=== PATIENT | female | born 1940 | race African-American/Black ===

== ENCOUNTER 2017-07-22 11:03 | Emergency (ER) | payer OTHER ==
--- NOTE | 2017-07-22 12:41 | ER ---
Nurse's Notes [facility] Name: Dulce Bosch Age: 76 yrs Sex: Female : 1940 Arrival Date: 07/22/2017 Time: 11:04 Bed Waiting Private MD: Feliciano Mendoza H Diagnosis: Presentation: 07/22 11:15 Presenting complaint: Patient states: Lower back pain that shoots down left leg. aj Started 2 weeks ago. Transition of care: patient was not received from another setting of care. Onset of symptoms was July 08, 2017. Initial Sepsis Screen: Does the patient meet any 2 criteria? No. Patient's initial sepsis screen is negative. Does the patient have a suspected source of infection? No. Patient's initial sepsis screen is negative. Care prior to arrival: None. 11:15 Method Of Arrival: Ambulatory aj 11:15 Acuity: LINETTE 4 aj Triage Assessment: 11:17 General: Appears in no apparent distress. comfortable, Behavior is calm, cooperative, aj appropriate for age. Pain: Complains of pain in coccyx, left lower back, right lower back, left gluteus rin and left gluteal fold Pain currently is 9 out of 10 on a pain scale. Neuro: Level of Consciousness is awake, alert, obeys commands, Oriented to person, place, time, situation. Respiratory: Airway is patent Respiratory effort is even, unlabored, Respiratory pattern is regular, symmetrical. : No signs and/or symptoms were reported regarding the genitourinary system. Derm: Skin is intact, is healthy with good turgor, Skin is pink, warm \T\ dry. normal. Musculoskeletal: Circulation, motion, and sensation intact. Reports pain in coccyx, left lower back, right lower back, left gluteus rin and left gluteal fold. Historical: - Allergies: 11:17 No Known Allergies; aj - Home Meds: 11:17 Lisinopril Oral [Active]; Zetia Oral [Active]; Sensipar oral oral [Active]; aj - PMHx: 11:17 Hypertension; Hyperlipidemia; aj - PSHx: 11:17 bilateral mastectomy; aj - Immunization history:: Adult Immunizations up to date. - Social history:: Smoking status: Patient/guardian denies using tobacco. Vital Signs: 11:17 BP 137 / 76; Pulse 80; Resp 17; Temp 97.9; Pulse Ox 98% on R/A; Weight 84.37 kg; Height aj 5 ft. 7 in. (170.18 cm); Pain 9/10; 11:17 Body Mass Index 29.13 (84.37 kg, 170.18 cm) aj ED Course: 11:04 Patient arrived in ED. as 11:04 Feliciano Mendoza DO is Private Physician. as 11:16 Triage completed. aj 11:17 Arm band placed on left wrist. Patient placed in waiting room, Patient notified of wait aj time. 12:41 Remy Lo MD is Attending Physician. aj 12:41 Patient's name was called from ER lobby. No response. aj Administered Medications: No medications were administered Outcome: 12:41 Eloped from waiting room, before seeing physician aj 12:41 Patient left the ED. aj Signatures: Cecilia Thompson, RN RN Danae Rosales as
== END 2017-07-22 12:41 | disposition left against medical advice (07) ==
LOC: ER 11:03
DX: Z02.9 Encounter for administrative examinations, unspecified (principal)
CPT/HCPCS: 99281

== ENCOUNTER 2017-07-22 14:41 | Emergency (ER) | payer OTHER ==
[2017-07-22 15:38] LABS: Urine Blood TRACE (NEG); Urine Glucose NEGATIVE (NEG); Urine Protein NEGATIVE (NEG); Urine Specific Gravity 1.015 (1.005-1.030); Urine pH 6.5 (5.0-7.0)
[2017-07-22 16:19] LABS: Urine Bacteria <20 /HPF (<20); Urine RBC <5 /HPF (NONE SEEN)
[2017-07-22 16:20] LABS: Urine Culture Reflex Order REFLEXED; Urine Mucus NS /HPF (NONE SEEN)
--- NOTE | 2017-07-22 16:29 | ER ---
Nurse's Notes [facility] Name: Dulce Bosch Age: 76 yrs Sex: Female : 1940 Arrival Date: 07/22/2017 Time: 14:43 Bed 28 Private MD: Diagnosis: Lumbago with sciatica, left side Presentation: 07/22 14:46 Presenting complaint: Patient states: "I had to leave a little while ago before I could aj get back because my needed something from home." Patient reports low back pain that shoots down left leg for 2 weeks. Transition of care: patient was not received from another setting of care. Onset of symptoms was July 08, 2017. Initial Sepsis Screen: Does the patient meet any 2 criteria? No. Patient's initial sepsis screen is negative. Does the patient have a suspected source of infection? No. Patient's initial sepsis screen is negative. Care prior to arrival: None. 14:46 Method Of Arrival: Ambulatory 14:46 Acuity: LINETTE 4 aj Triage Assessment: 14:48 General: Appears in no apparent distress. comfortable, Behavior is calm, cooperative. aj Pain: Complains of pain in coccyx, left lower back, left gluteus rin and left gluteal fold. Neuro: Level of Consciousness is awake, alert, obeys commands, Oriented to person, place, time, situation, Appropriate for age. Respiratory: Airway is patent Respiratory effort is even, unlabored, Respiratory pattern is regular, symmetrical. Derm: Skin is intact, is healthy with good turgor, Skin is pink, warm \\T\\ dry. normal. Musculoskeletal: Range of motion: intact in all extremities. Historical: - Allergies: 14:48 No Known Allergies; aj - Home Meds: 14:48 lisinopril Oral [Active]; Sensipar Oral [Active]; Zetia Oral [Active]; aj - PMHx: 14:48 Hyperlipidemia; Hypertension; aj - PSHx: 14:48 bilateral mastectomy; aj - Immunization history:: Adult Immunizations up to date. - Social history:: Smoking status: Patient/guardian denies using tobacco. Screenin:35 Abuse screen: Denies threats or abuse. Denies injuries from another. Nutritional kr2 screening: No deficits noted. Tuberculosis screening: No symptoms or risk factors identified. Fall Risk None identified. Assessment: 15:39 General: Appears in no apparent distress. comfortable, well groomed, well developed, kr2 well nourished, Behavior is calm, cooperative. Pain: Complains of pain in left gluteus rin and left lower back Pain radiates to left leg Pain currently is 9 out of 10 on a pain scale. Quality of pain is described as burning, aching, shooting, Is continuous, Alleviated by rest, Aggravated by weight bearing. Neuro: Level of Consciousness is awake, alert, obeys commands, Oriented to person, place, time, situation, Manager Sterile are equal bilaterally Moves all extremities. Gait is steady, Speech is normal, Facial symmetry appears normal, Pupils are PERRLA, Intact. Cardiovascular: Capillary refill < 3 seconds in bilateral fingers Patient's skin is warm and dry. Respiratory: Airway is patent Respiratory effort is even, unlabored, Respiratory pattern is regular, symmetrical. GI: Abdomen is flat, non-distended. : Urine is clear. EENT: Nares are clear bilaterally Oral mucosa is moist. Derm: Skin is intact, is healthy with good turgor, Skin is pink, warm \\T\\ dry. Musculoskeletal: Circulation, motion, and sensation intact. 16:42 Reassessment: Patient appears in no apparent distress at this time. Patient and/or kr2 family updated on plan of care and expected duration. Pain level reassessed. Patient is alert/active/playful, equal unlabored respirations, skin warm/dry/pink. Vital Signs: 14:48 BP 137 / 76; Pulse 80; Resp 17; Temp 97.9; Pulse Ox 98% on R/A; Weight 84.37 kg (M); aj Height 5 ft. 7 in. (170.18 cm); Pain 9/10; 16:42 BP 135 / 74; Pulse 80; Resp 17; Pulse Ox 99% on R/A; kr2 14:48 Body Mass Index 29.13 (84.37 kg, 170.18 cm) ED Course: 14:43 Patient arrived in ED. as 14:47 Triage completed. aj 14:48 Arm band placed on left wrist. Patient placed in an exam room. aj 15:03 Brad Julio PA is PHCP. cp 15:03 Remy Lo MD is Attending Physician. cp 15:07 Rosalina Mack RN is Primary Nurse. kr2 15:30 Urine collected: clean catch specimen, clear. kr2 15:35 Patient has correct armband on for positive identification. Bed in low position. Call kr2 light in reach. Side rails up X2. Pulse ox on. NIBP on. Door closed. Warm blanket given. Head of bed elevated. 16:43 No provider procedures requiring assistance completed. Patient did not have IV access kr2 during this emergency room visit. Administered Medications: No medications were administered Outcome: 16:28 Discharge ordered by . rosa 16:43 Discharged to home ambulatory, with family. kr2 16:43 Condition: good 16:43 Discharge instructions given to patient, Instructed on discharge instructions, follow up and referral plans. medication usage, Demonstrated understanding of instructions, follow-up care, medications, Prescriptions given X 3. 16:43 Patient left the ED. kr2 Signatures: Cecilia Thompson, RN RN Danae Rosales Corey, PA PA cp Reaves, Karey RN RN kr2
--- NOTE | 2017-07-22 16:29 | EDPHYS ---
Physician Documentation [facility] Name: Dulce Bosch Age: 76 yrs Sex: Female : 1940 Arrival Date: 07/22/2017 Time: 14:43 Bed 28 Private MD: ED Physician Remy Lo HPI: 07/22 15:15 This 76 yrs old Black Female presents to ER via Ambulatory with complaints of Back Pain.cp 15:15 The patient presents with pain that is acute, with no known mechanism of injury. The cp symptoms are located in the low back. The pain radiates to the left leg. 15:15 Onset: The symptoms/episode began/occurred 2 week(s) ago. cp 15:15 Associated signs and symptoms: Pertinent negatives: abdominal pain, chest pain, cp constipation, dysuria, fever, incontinence, numbness, urinary retention, weakness. The problem was sustained from unknown cause. Historical: - Allergies: 14:48 No Known Allergies; aj - Home Meds: 14:48 lisinopril Oral [Active]; Sensipar Oral [Active]; Zetia Oral [Active]; aj - PMHx: 14:48 Hyperlipidemia; Hypertension; aj - PSHx: 14:48 bilateral mastectomy; aj - Immunization history:: Adult Immunizations up to date. - Social history:: Smoking status: Patient/guardian denies using tobacco. ROS: 15:20 Constitutional: Negative for body aches, chills, fever, poor PO intake. cp 15:20 Eyes: Negative for injury, pain, redness, and discharge. cp 15:20 ENT: Negative for drainage from ear(s), ear pain, sore throat, difficulty swallowing, difficulty handling secretions. 15:20 Cardiovascular: Negative for chest pain, edema, palpitations. 15:20 Respiratory: Negative for cough, shortness of breath, wheezing. 15:20 Abdomen/GI: Negative for abdominal pain, nausea, vomiting, and diarrhea, constipation, black/tarry stool, rectal bleeding, bowel incontinence. 15:20 Back: Positive for pain at rest, pain with movement, of the low back area. 15:20 : Negative for urinary symptoms, flank pain, difficulty urinating, bladder incontinence. 15:20 MS/extremity: Positive for of the left leg, radiating pain, Negative for injury or acute deformity, decreased range of motion, paresthesias, swelling, tenderness. 15:20 Skin: Negative for cellulitis, rash. 15:20 Neuro: Negative for altered mental status, headache, numbness, weakness. 15:20 All other systems are negative. Exam: 15:25 Constitutional: The patient appears in no acute distress, alert, awake, non-toxic, well cp developed, well nourished. 15:25 Head/Face: Normocephalic, atraumatic. cp 15:25 Eyes: Periorbital structures: appear normal, Conjunctiva: normal, no exudate, no injection, Sclera: no appreciated abnormality, Lids and lashes: appear normal, bilaterally. 15:25 ENT: External ear(s): are unremarkable, Nose: is normal, Mouth: is normal, Posterior pharynx: is normal, airway is patent. 15:25 Neck: ROM/movement: is normal, is supple, without pain, no range of motions limitations, no nuchal rigidity. 15:25 Chest/axilla: Inspection: normal. 15:25 Cardiovascular: Rate: normal, Rhythm: regular. 15:25 Respiratory: the patient does not display signs of respiratory distress, Respirations: normal, no use of accessory muscles, no retractions, no splinting, no tachypnea, labored breathing, is not present, Breath sounds: are clear throughout, no decreased breath sounds, no stridor, no wheezing. 15:25 Abdomen/GI: Exam negative for discomfort, distension, guarding, Inspection: abdomen appears normal. 15:25 Back: pain, that is mild, of the low back area, ROM is normal, CVA tenderness, is absent, muscle spasm, is not present, Straight leg raises: of both lower extremities does not illicit pain. 15:25 Skin: cellulitis, is not appreciated, no rash present. 15:25 Neuro: Motor: moves all fours, strength is 5/5 in the right leg and left leg, Sensation: no obvious gross deficits, Gait: is steady, Deep tendon reflexes are 2+ (normal) in the right patellar, right Achilles, left patellar and left Achilles. Vital Signs: 14:48 BP 137 / 76; Pulse 80; Resp 17; Temp 97.9; Pulse Ox 98% on R/A; Weight 84.37 kg (M); aj Height 5 ft. 7 in. (170.18 cm); Pain 9/10; 16:42 BP 135 / 74; Pulse 80; Resp 17; Pulse Ox 99% on R/A; kr2 14:48 Body Mass Index 29.13 (84.37 kg, 170.18 cm) aj MDM: 15:03 Patient medically screened. cp 16:00 Differential diagnosis: Pyelonephritis ruptured disc, Ureterolithiasis sciatica, cp lumbago. 16:25 Data reviewed: vital signs, nurses notes, lab test result(s), and as a result, I will cp discharge patient. 16:25 Counseling: I had a detailed discussion with the patient and/or guardian regarding: the cp historical points, exam findings, and any diagnostic results supporting the discharge/admit diagnosis, lab results, the need for outpatient follow up, a family practitioner, to return to the emergency department if symptoms worsen or persist or if there are any questions or concerns that arise at home. 07/22 15:03 Order name: Urine Microscopic Only 07/22 15:04 Order name: Urine Microscopic Only; Complete Time: 16:24 EDCT 07/22 15:03 Order name: Urine Dipstick-Ancillary (obtain specimen); Complete Time: 15:35 07/22 15:31 Order name: Urine Dipstick--Ancillary (enter results) mw2 07/22 15:32 Order name: Urine Dipstick-Ancillary; Complete Time: 16:11 EDCT 07/22 16:11 Interpretation: Normal except: UBLD TRACE; UESTR 1+. 07/22 16:22 Order name: Urine Culture EDMS Administered Medications: No medications were administered Disposition: 07/22/17 16:28 Discharged to Home. Impression: Lumbago with sciatica, left side. - Condition is Stable. - Discharge Instructions: Sciatica. - Prescriptions for Cyclobenzaprine 10 mg Oral Tablet - take 1 tablet by ORAL route every 8 hours As needed no driving while taking medication; 20 tablet. Tramadol 50 mg Oral Tablet - take 1 tablet by ORAL route every 8 hours as needed. no driving while taking medication; 15 tablet. Medrol (Jerrod) 4 mg Oral Tablets, Dose Pack - take 1 tablet by ORAL route as directed - follow package instructions; 1 packet. - Medication Reconciliation Form, Thank You Letter, Antibiotic Education, Prescription Opioid Use form. - Follow up: Private Physician; When: 2 - 3 days; Reason: Recheck today's complaints. - Problem is new. - Symptoms are unchanged. Addendum: 07/25/2017 19:02 Co-signature as Attending Physician, Remy Lo MD. r n Signatures: Dispatcher [employer] Cecilia Ellis, RN RN Remy Bazan MD MD rn Brad Julio PA PA cp Reaves, Karey RN RN kr2
== END 2017-07-22 16:43 | disposition home or self-care (01) ==
LOC: ER 14:41
DX: M54.42 Lumbago with sciatica, left side (principal); I10 Essential (primary) hypertension; E78.5 Hyperlipidemia, unspecified
CPT/HCPCS: 81003; 81015; 87086; 87088; 99283

== ENCOUNTER 2018-10-27 11:36 | Emergency (ER) | payer OTHER ==
[2018-10-27 12:31] LABS: Absolute Lymphocytes (CBC) 1.5 K/uL (0.7-4.9); Basophils % 1.2 % (0-1.3); Hematocrit 37.6 % (36.0-45.0); Lymphocytes % 33.6 % (15.3-44.8); RBC Red Blood Cell Count 4.93 M/uL (3.86-4.86)
[2018-10-27 12:48] LABS: ALT/SGPT 20 U/L (12-78); AST/SGOT 19 U/L (15-37); Albumin 3.7 g/dL (3.4-5.0); Alkaline Phosphatase 71 U/L (45-117); BUN Blood Urea Nitrogen 12 mg/dL (7-18); Bicarbonate 28 mmol/L (21-32); Bilirubin Direct < 0.1 mg/dL (0-0.2); Bilirubin Total 0.3 mg/dL (0.2-1.0); Glucose Level 81 mg/dL (74-106); Lipase 119 U/L (73-393); Potassium 3.8 mmol/L (3.5-5.1); Protein, Total 7.3 g/dL (6.4-8.2); Sodium Level 142 mmol/L (136-145)
[2018-10-27 12:53] LABS: Urine Blood 1+ (NEG); Urine Glucose NEGATIVE (NEG); Urine Protein NEGATIVE (NEG); Urine pH 6.5 (5.0-7.0)
--- NOTE | 2018-10-27 14:09 | RAD REPORT ---
EXAM DESCRIPTION: CT - Stone Protocol - 10/27/2018 1:10 pm CLINICAL HISTORY: Abdominal pain. Right flank pain COMPARISON: None. TECHNIQUE: Computed axial tomography of the abdomen pelvis was obtained without oral or IV contrast. Lack of IV and oral contrast limits evaluation of solid organs, bowel, and vessels. Coronal reformat nury images were obtained and reviewed. All CT scans are performed using dose optimization technique as appropriate and may include automated exposure control or mA/KV adjustment according to patient size. FINDINGS: Two small left renal calculi. No hydronephrosis. 27 millimeter isodense structure abuts the lower pole of the right kidney. An ureteral calculus is no t noted. A bladder calculus is not present. A small hepatic cyst is suspected Spleen, pancreas and adrenals appear grossly normal There is no evidence of diverticulitis. Portions of the appendix are seen and are normal caliber. Small umbilical hernia contains fat 7.3 x 2.1 centimeter lobulated cystic mass right adnexa IMPRESSION: Small nonobstructing left renal calculi 27 millimeter isodense structure abutting lower pole right kidney 7.3 x 2.1 centimeter lobulated cystic mass right adnexa may represent an ovarian cystadenoma or benig n complex cyst. Ultrasound is recommended to further evaluate the right kidney and right adnexa
--- NOTE | 2018-10-27 15:26 | RAD REPORT ---
EXAM DESCRIPTION: US - Renal Ultrasound-Limited - 10/27/2018 3:08 pm CLINICAL HISTORY: right side. Mass Right renal followup assessment COMPARISON: Stone Protocol dated 10/27/2018 FINDINGS: The right kidney measures 7.2 x 4.3 x 4.2 cm. 9 x 8 mm cortical renal cyst is present mid-pole right kidney. No hydronephrosis, focal solid mass or perinephric fluid.
--- NOTE | 2018-10-27 15:55 | ER ---
Nurse's Notes [facility] Name: Dulce Bosch Age: 77 yrs Sex: Female : 1940 Arrival Date: 10/27/2018 Time: 11:40 Bed 23 Private MD: Feliciano Mendoza H Diagnosis: Muscle spasm of back Presentation: 10/27 11:44 Presenting complaint: Right flank pain that radiates to front of right hip x 1 week. hb Denies recent fall/fever/urinary s/s. Transition of care: patient was not received from another setting of care. Onset of symptoms was October 11, 2018. Risk Assessment: Do you want to hurt yourself or someone else? Patient reports no desire to harm self or others. Initial Sepsis Screen: Does the patient meet any 2 criteria? No. Patient's initial sepsis screen is negative. Does the patient have a suspected source of infection? No. Patient's initial sepsis screen is negative. Care prior to arrival: None. 11:44 Method Of Arrival: Ambulatory hb 11:44 Acuity: LINETTE 3 hb Historical: - Allergies: 11:46 No Known Allergies; hb - Home Meds: 11:46 lisinopril Oral [Active]; Sensipar Oral [Active]; Zetia Oral [Active]; hb - PMHx: 11:46 Hyperlipidemia; Hypertension; hb - PSHx: 11:46 bilateral mastectomy; hb - Immunization history:: Adult Immunizations up to date. - Social history:: Smoking status: Patient/guardian denies using tobacco. - Ebola Screening: : No symptoms or risks identified at this time. Screenin:34 Abuse screen: Denies threats or abuse. Denies injuries from another. Nutritional mg2 screening: No deficits noted. Tuberculosis screening: No symptoms or risk factors identified. Fall Risk IV access (20 points). Assessment: 12:33 General: Appears in no apparent distress. comfortable, Behavior is calm, cooperative. mg2 Pain: Complains of pain in right flank Pain does not radiate. Pain currently is 5 out of 10 on a pain scale. Quality of pain is described as aching. Neuro: Level of Consciousness is awake, alert, obeys commands, Oriented to person, place, time, situation. Cardiovascular: Capillary refill < 3 seconds Patient's skin is warm and dry. Respiratory: Airway is patent Respiratory effort is even, unlabored, Respiratory pattern is regular, symmetrical. GI: No signs and/or symptoms were reported involving the gastrointestinal system. : Reports pain in right flank(s). EENT: No signs and/or symptoms were reported regarding the EENT system. Derm: Skin is intact, is healthy with good turgor, Skin is pink, warm \T\ dry. normal. Musculoskeletal: Circulation, motion, and sensation intact. Capillary refill < 3 seconds. 16:04 Reassessment: Patient appears in no apparent distress at this time. mg2 Vital Signs: 11:46 BP 154 / 79; Pulse 75; Resp 16; Temp 97.2; Pulse Ox 100% on R/A; Weight 86.18 kg; hb Height 5 ft. 6 in. (167.64 cm); Pain 8/10; 12:34 BP 162 / 78; Pulse 76; Resp 18; Pulse Ox 100% on R/A; mg2 13:36 BP 143 / 71; Pulse 65; Resp 18; Pulse Ox 100% on R/A; mg2 14:46 BP 139 / 73; Pulse 66; Resp 18; Pulse Ox 100% on R/A; mg2 15:51 BP 138 / 72; Pulse 66; Resp 18; Pulse Ox 100% on R/A; mg2 11:46 Body Mass Index 30.67 (86.18 kg, 167.64 cm) hb ED Course: 11:40 Patient arrived in ED. mr 11:42 Feliciano Mendoza DO is Private Physician. mr 11:45 Triage completed. hb 11:46 Arm band placed on. hb 11:54 Herman Delgado PA is PHCP. jr8 11:54 Remy Lo MD is Attending Physician. jr8 11:55 Jordin Talbot, LOIDA is Primary Nurse. mg2 12:22 Initial lab(s) drawn, by me, sent to lab. Urine collected: clean catch specimen, clear, ms Amount Voided: 40mL. Inserted saline lock: 20 gauge in right antecubital area, using aseptic technique. Blood collected. 12:34 Patient has correct armband on for positive identification. Pulse ox on. NIBP on. Door mg2 closed. Warm blanket given. 12:34 No provider procedures requiring assistance completed. mg2 13:10 CT Stone Protocol In Process Unspecified. EDMS 15:08 US Rp Exam Limited In Process Unspecified. EDMS 16:04 IV discontinued, intact, bleeding controlled, No redness/swelling at site. Pressure mg2 dressing applied. Administered Medications: No medications were administered Outcome: 15:54 Discharge ordered by MD. crane 16:05 Discharged to home ambulatory, with family. mg2 16:05 Condition: stable 16:05 Discharge instructions given to patient, Instructed on discharge instructions, follow up and referral plans. medication usage, Demonstrated understanding of instructions, follow-up care, medications, Prescriptions given X 2. 16:06 Patient left the ED. mg2 Signatures: Dispatcher [employer] EDMS Spencer, Nirmala mr Quintin, Brenda ms Herman Delgado PA PA jr8 Verna Gomez, LOIDA RN Jordin Talbot RN RN mg2 Corrections: (The following items were deleted from the chart) 16:05 15:51 Pulse 66bpm; Resp 18bpm; Pulse Ox 100% RA; mg2 mg2
--- NOTE | 2018-10-27 15:56 | EDPHYS ---
Physician Documentation [facility] Name: Dulce Bosch Age: 77 yrs Sex: Female : 1940 Arrival Date: 10/27/2018 Time: 11:40 Bed 23 Private MD: Feliciano Mendoza H ED Physician Remy Lo HPI: 10/27 12:32 This 77 yrs old Black Female presents to ER via Ambulatory with complaints of Flank jr8 Pain. 12:32 The patient complains of pain in the right flank. The pain does not radiate. Onset: The jr8 symptoms/episode began/occurred suddenly, 3 day(s) ago. Modifying factors: The symptoms are alleviated by nothing. the symptoms are aggravated by movement. Associated signs and symptoms: The patient has no apparent associated signs or symptoms. Severity of pain: At its worst the pain was mild in the emergency department the pain is unchanged. The patient has not experienced similar symptoms in the past. The patient has not recently seen a physician. Historical: - Allergies: 11:46 No Known Allergies; hb - Home Meds: 11:46 lisinopril Oral [Active]; Sensipar Oral [Active]; Zetia Oral [Active]; hb - PMHx: 11:46 Hyperlipidemia; Hypertension; hb - PSHx: 11:46 bilateral mastectomy; hb - Immunization history:: Adult Immunizations up to date. - Social history:: Smoking status: Patient/guardian denies using tobacco. - Ebola Screening: : No symptoms or risks identified at this time. ROS: 12:32 Eyes: Negative for injury, pain, redness, and discharge, ENT: Negative for injury, jr8 pain, and discharge, Neck: Negative for injury, pain, and swelling, Cardiovascular: Negative for chest pain, palpitations, and edema, Respiratory: Negative for shortness of breath, cough, wheezing, and pleuritic chest pain, Abdomen/GI: Negative for abdominal pain, nausea, vomiting, diarrhea, and constipation, MS/Extremity: Negative for injury and deformity, Skin: Negative for injury, rash, and discoloration, Neuro: Negative for headache, weakness, numbness, tingling, and seizure. 12:32 Back: Positive for pain with movement, flank pain, on the right. Exam: 12:32 Eyes: Pupils equal round and reactive to light, extra-ocular motions intact. Lids and jr8 lashes normal. Conjunctiva and sclera are non-icteric and not injected. Cornea within normal limits. Periorbital areas with no swelling, redness, or edema. ENT: Nares patent. No nasal discharge, no septal abnormalities noted. Tympanic membranes are normal and external auditory canals are clear. Oropharynx with no redness, swelling, or masses, exudates, or evidence of obstruction, uvula midline. Mucous membranes moist. Neck: Trachea midline, no thyromegaly or masses palpated, and no cervical lymphadenopathy. Supple, full range of motion without nuchal rigidity, or vertebral point tenderness. No Meningismus. Cardiovascular: Regular rate and rhythm with a normal S1 and S2. No gallops, murmurs, or rubs. Normal PMI, no JVD. No pulse deficits. Respiratory: Lungs have equal breath sounds bilaterally, clear to auscultation and percussion. No rales, rhonchi or wheezes noted. No increased work of breathing, no retractions or nasal flaring. Back: No spinal tenderness. No costovertebral tenderness. Full range of motion. Skin: Warm, dry with normal turgor. Normal color with no rashes, no lesions, and no evidence of cellulitis. MS/ Extremity: Pulses equal, no cyanosis. Neurovascular intact. Full, normal range of motion. Neuro: Awake and alert, GCS 15, oriented to person, place, time, and situation. Cranial nerves II-XII grossly intact. Motor strength 5/5 in all extremities. Sensory grossly intact. Cerebellar exam normal. Normal gait. 12:32 Abdomen/GI: Inspection: abdomen appears normal, Bowel sounds: active, all quadrants, Palpation: soft, in all quadrants, mild abdominal tenderness, in the posterior aspect of right lateral abdomen and anterior aspect of right lateral abdomen, mass, is not appreciated, rebound tenderness, is not appreciated, voluntary guarding, is not appreciated, involuntary guarding, is not appreciated, no appreciated organomegaly, Indicators: McBurney's point is not tender, Kimble's sign is negative, Rovsing's sign is negative, Liver: tenderness, is not appreciated. Vital Signs: 11:46 BP 154 / 79; Pulse 75; Resp 16; Temp 97.2; Pulse Ox 100% on R/A; Weight 86.18 kg; hb Height 5 ft. 6 in. (167.64 cm); Pain 8/10; 12:34 BP 162 / 78; Pulse 76; Resp 18; Pulse Ox 100% on R/A; mg2 13:36 BP 143 / 71; Pulse 65; Resp 18; Pulse Ox 100% on R/A; mg2 14:46 BP 139 / 73; Pulse 66; Resp 18; Pulse Ox 100% on R/A; mg2 15:51 BP 138 / 72; Pulse 66; Resp 18; Pulse Ox 100% on R/A; mg2 11:46 Body Mass Index 30.67 (86.18 kg, 167.64 cm) hb MDM: 11:56 Patient medically screened. jr8 15:52 Data reviewed: vital signs, nurses notes, lab test result(s), radiologic studies, CT jr8 scan, ultrasound. Data interpreted: Pulse oximetry: on room air is 100 %. Interpretation: normal. Counseling: I had a detailed discussion with the patient and/or guardian regarding: the historical points, exam findings, and any diagnostic results supporting the discharge/admit diagnosis, lab results, radiology results, the need for outpatient follow up, a family practitioner, to return to the emergency department if symptoms worsen or persist or if there are any questions or concerns that arise at home. ED course: Discussed radiographic findings with patient along with blood work. No malignancy found. Patient knows about lower right adnexal cyst/mass which is benign from MD Pineda's work up. Explained to her that the pain is more than likely muscle in nature. Will treat as such and if she worsen's to come back for further evaluation. Patient good with plan . 10/27 12:05 Order name: Basic Metabolic Panel; Complete Time: 12:55 10/27 12:05 Order name: CBC with Diff; Complete Time: 12:32 10/27 12:05 Order name: Creatinine for Radiology; Complete Time: 12:55 10/27 12:05 Order name: Hepatic Function; Complete Time: 12:55 10/27 12:05 Order name: Lipase; Complete Time: 12:55 10/27 12:26 Order name: Urine Dipstick--Ancillary (enter results); Complete Time: 12:55 10/27 12:05 Order name: IV Saline Lock; Complete Time: 12:21 10/27 12:05 Order name: Labs collected and sent; Complete Time: 12:22 10/27 12:05 Order name: Urine Dipstick-Ancillary (obtain specimen); Complete Time: 12:22 10/27 12:55 Order name: CT Stone Protocol; Complete Time: 14:13 10/27 14:14 Order name: US Rp Exam Limited; Complete Time: 15:44 Administered Medications: No medications were administered Disposition: 16:22 Co-signature as Attending Physician, Remy Lo MD. rn Disposition: 10/27/18 15:54 Discharged to Home. Impression: Muscle spasm of back. - Condition is Stable. - Discharge Instructions: Muscle Cramps and Spasms, Heat Therapy. - Prescriptions for Skelaxin 800 mg Oral Tablet - take 1 tablet by ORAL route every 8 hours As needed; 30 tablet. Tramadol 50 mg Oral Tablet - take 1 tablet by ORAL route every 8 hours as needed; 12 tablet. - Medication Reconciliation Form, Thank You Letter, Antibiotic Education, Prescription Opioid Use form. - Follow up: Private Physician; When: 2 - 3 days; Reason: Recheck today's complaints, Continuance of care, Re-evaluation by your physician. - Problem is new. - Symptoms have improved. Signatures: Dispatcher [employer] EDMS eRmy Lo MD MD rn Roszak, Josh, PA PA jr8 Verna Gomez RN RN Jordin Talbot RN RN mg2 Corrections: (The following items were deleted from the chart) 16:06 15:54 10/27/2018 15:54 Discharged to Home. Impression: Muscle spasm of back. Condition mg2 is Stable. Forms are Medication Reconciliation Form, Thank You Letter, Antibiotic Education, Prescription Opioid Use. Follow up: Private Physician; When: 2 - 3 days; Reason: Recheck today's complaints, Continuance of care, Re-evaluation by your physician. Problem is new. Symptoms have improved. jr8
== END 2018-10-27 16:06 | disposition home or self-care (01) ==
LOC: ER 11:36
DX: M62.830 Muscle spasm of back (principal); E78.5 Hyperlipidemia, unspecified; I10 Essential (primary) hypertension
CPT/HCPCS: 36415; 74176; 76377; 76775; 80048; 80076; 81003; 83690; 85025

== ENCOUNTER 2022-01-23 11:27 | Emergency (ER) | payer OTHER ==
--- OUTSIDE RECORDS SUMMARY | 2022-01-23 11:35 | XMS REPORT | Continuity of Care Document ---
:1940 Author Organization [facility] t Address [address] [place] [address] [address] [place] [address] Care Team Providers Name Role Phone [phone] Primary Care Physician Unavailable Caleb Moon Attending Clinician Unavailable ETHAN LANZA Attending Clinician Unavailable COURTNEY DEMARCO Attending Clinician Unavailable BRISA GILMORE Attending Clinician Unavailable BALDOMERO PAVON Attending Clinician Unavailable Payers Payer Name Policy Type Policy Number Effective Date Expiration Date S meryl [facility] MEDICARE [id number] 2020 ADVANTAGE 00:00:00 HU[employer] CHOICE [id number] 2017 2020 MEDICARE PPO 00:00:00 00:00:00 [employer]ET[employer] NON [id number] 1999 2017 CONTRACTED 00:00:00 00:00:00 MEDICARE PART A [id number] 2005 2017 AND B 00:00:00 00:00:00 [place] [id number] Common [facility]ALTHCARE [facility] Spirit - C [facility] Problems Condition Condition Condition Status Onset Resolution Last Treating Co mments Source Name Details Category Date Date Treatment Clinician Date [id number] Lumbago Problem Active Commo n with Spirit sciatica, - right side [facility] [id number] Secondary Problem Active Comm on hyperparat Spirit hyroidism - [facility] [id number] Other Problem Active Common chronic Spirit pain - [facility] [id number] History of Problem Active Co mmon bilateral Spirit mastectomy - [facility] [id number] Hx of Problem Active Common renal cell [facility] carcinoma [facility] [id number] Mixed Problem Active Common hyperlipid [facility] emia [facility] [id number] Vitamin D Problem Active Comm on deficiency [facility] [id number] 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 Social History Social Habit Start Date Stop Date Quantity Comments Source History of Tobacco Use Co mmon [facility] Sex Assigned At Com mon [facility] Smoking Status Start Date Stop Date Source Former Smoker 2021-09-29 00:00:00 2021-09-29 00:00:[address] [facility] Medications Ordered Filled Start Stop Current Ordering Indication Dosage Frequency Signature Comments Components Source Medication Medication Date Date Medication? Clinician (SIG) Name Name Pravastatin Pravastatin Yes Caleb 1 tablet Common Sodium Sodium 6-11 [facility] 00:00: - [facility] 00 [facility] Livalo Livalo Yes Caleb 1 tablet Commo n [facility] Ezetimibe Ezetimibe Yes Caleb 1 tablet [facility] Multivitami Multivitami Yes Caleb as Common n Adults n Adults [facility] Fish Oil Fish Oil Yes Caleb 1 capsule [facility] Lisinopril Lisinopril Yes Caleb 1 tablet [facility] Sensipar Sensipar Yes Caleb 1 tablet C ommon Moon with food Spirit or after a - [facility] meal [facility] Ferrous Ferrous Yes Caleb 1 tablet Com mon Sulfate Sulfate [facility] Vitamin D-3 Vitamin D-3 Yes Caleb as Common Moon directed [facility] Gabapentin Gabapentin Yes Caleb 1 capsule [facility] Aspir-Low Aspir-Low Yes Caleb 1 tablet [facility] Ezetimibe Ezetimibe No 1{table QD Ezetimibe 10 MG 10 MG t} 10 MG Ezetimibe Ezetimibe No Ezetimibe 10 MG 10 MG 10 MG Pravastatin Pravastatin No Pravastati Sodium 20 Sodium 20 n Sodium MG MG 20 MG Sensipar 30 Sensipar 30 No BID Sensipar MG MG 30 MG Aspir-Low Aspir-Low No 1{table QD Aspir-Low 81 MG 81 MG t} 81 MG Vitamin D-3 Vitamin D-3 No Vitamin 5000 5000 D-3 5000 UNIT/ML UNIT/ML UNIT/ML Gabapentin Gabapentin No 1{capsu Gabapentin 100 MG 100 MG le} 100 MG Lisinopril Lisinopril No 1{table BID Lisinopril 20 MG 20 MG t} 20 MG Multivitami Multivitami No Multivitam n Adults - n Adults - in Adults - Pravastatin Pravastatin No 1{table QD Pravastati Sodium 20 Sodium 20 t} n Sodium MG MG 20 MG Fish Oil Fish Oil No 1{capsu QD Fish Oil 1000 MG 1000 MG le} 1000 MG Ferrous Ferrous No 1{table QD Ferrous Sulfate 27 Sulfate 27 t} Sulfate 27 MG MG MG Lisinopril Lisinopril No Lisinopril 20 MG 20 MG 20 MG Ferrous Ferrous No 1{table QD Ferrous Sulfate 27 Sulfate 27 t} Sulfate 27 MG MG MG Vitamin D-3 Vitamin D-3 No Vitamin 5000 5000 D-3 5000 UNIT/ML UNIT/ML UNIT/ML Fish Oil Fish Oil No 1{capsu QD Fish Oil 1000 MG 1000 MG le} 1000 MG Pravastatin Pravastatin No 1{table QD Pravastati Sodium 20 Sodium 20 t} n Sodium MG MG 20 MG Lisinopril Lisinopril No 1{table BID Lisinopril 20 MG 20 MG t} 20 MG Gabapentin Gabapentin No 1{capsu Gabapentin 100 MG 100 MG le} 100 MG Aspir-Low Aspir-Low No 1{table QD Aspir-Low 81 MG 81 MG t} 81 MG Multivitami Multivitami No Multivitam n Adults - n Adults - in Adults - Sensipar 30 Sensipar 30 No BID Sensipar MG MG 30 MG Ezetimibe Ezetimibe No 1{table QD Ezetimibe 10 MG 10 MG t} 10 MG Ferrous Ferrous No 1{table QD Ferrous Sulfate 27 Sulfate 27 t} Sulfate 27 MG MG MG Vitamin D-3 Vitamin D-3 No Vitamin 5000 5000 D-3 5000 UNIT/ML UNIT/ML UNIT/ML Fish Oil Fish Oil No 1{capsu QD Fish Oil 1000 MG 1000 MG le} 1000 MG Pravastatin Pravastatin No 1{table QD Pravastati Sodium 20 Sodium 20 t} n Sodium MG MG 20 MG Lisinopril Lisinopril No 1{table BID Lisinopril 20 MG 20 MG t} 20 MG Gabapentin Gabapentin No 1{capsu Gabapentin 100 MG 100 MG le} 100 MG Aspir-Low Aspir-Low No 1{table QD Aspir-Low 81 MG 81 MG t} 81 MG Multivitami Multivitami No Multivitam n Adults - n Adults - in Adults - Sensipar 30 Sensipar 30 No BID Sensipar MG MG 30 MG Ezetimibe Ezetimibe No 1{table QD Ezetimibe 10 MG 10 MG t} 10 MG Sensipar 30 Sensipar 30 No BID Sensipar MG MG 30 MG Gabapentin Gabapentin No 1{capsu Gabapentin 100 MG 100 MG le} 100 MG Fish Oil Fish Oil No 1{capsu QD Fish Oil 1000 MG 1000 MG le} 1000 MG Ezetimibe Ezetimibe No 1{table QD Ezetimibe 10 MG 10 MG t} 10 MG Vitamin D-3 Vitamin D-3 No Vitamin 5000 5000 D-3 5000 UNIT/ML UNIT/ML UNIT/ML Ferrous Ferrous No 1{table QD Ferrous Sulfate 27 Sulfate 27 t} Sulfate 27 MG MG MG Lisinopril Lisinopril No 1{table BID Lisinopril 20 MG 20 MG t} 20 MG Lisinopril Lisinopril No Lisinopril 20 MG 20 MG 20 MG Ezetimibe Ezetimibe No Ezetimibe 10 MG 10 MG 10 MG Pravastatin Pravastatin No Pravastati Sodium 20 Sodium 20 n Sodium MG MG 20 MG Aspir-Low Aspir-Low No 1{table QD Aspir-Low 81 MG 81 MG t} 81 MG Multivitami Multivitami No Multivitam n Adults - n Adults - in Adults - Pravastatin Pravastatin No 1{table QD Pravastati Sodium 20 Sodium 20 t} n Sodium MG MG 20 MG Vitamin D-3 Vitamin D-3 No Vitamin 5000 5000 D-3 5000 UNIT/ML UNIT/ML UNIT/ML Pravastatin Pravastatin No 1{table QD Pravastati Sodium 20 Sodium 20 t} n Sodium MG MG 20 MG Ezetimibe Ezetimibe No 1{table QD Ezetimibe 10 MG 10 MG t} 10 MG Aspir-Low Aspir-Low No 1{table QD Aspir-Low 81 MG 81 MG t} 81 MG Ferrous Ferrous No 1{table QD Ferrous Sulfate 27 Sulfate 27 t} Sulfate 27 MG MG MG Lisinopril Lisinopril No 1{table BID Lisinopril 20 MG 20 MG t} 20 MG Fish Oil Fish Oil No 1{capsu QD Fish Oil 1000 MG 1000 MG le} 1000 MG Gabapentin Gabapentin No 1{capsu Gabapentin 100 MG 100 MG le} 100 MG Multivitami Multivitami No Multivitam n Adults - n Adults - in Adults - Sensipar 30 Sensipar 30 No BID Sensipar MG MG 30 MG Ezetimibe Ezetimibe No 1{table QD Ezetimibe 10 MG 10 MG t} 10 MG Ezetimibe Ezetimibe No Ezetimibe 10 MG 10 MG 10 MG Pravastatin Pravastatin No Pravastati Sodium 20 Sodium 20 n Sodium MG MG 20 MG Sensipar 30 Sensipar 30 No BID Sensipar MG MG 30 MG Aspir-Low Aspir-Low No 1{table QD Aspir-Low 81 MG 81 MG t} 81 MG Vitamin D-3 Vitamin D-3 No Vitamin 5000 5000 D-3 5000 UNIT/ML UNIT/ML UNIT/ML Gabapentin Gabapentin No 1{capsu Gabapentin 100 MG 100 MG le} 100 MG Lisinopril Lisinopril No 1{table BID Lisinopril 20 MG 20 MG t} 20 MG Multivitami Multivitami No Multivitam n Adults - n Adults - in Adults - Pravastatin Pravastatin No 1{table QD Pravastati Sodium 20 Sodium 20 t} n Sodium MG MG 20 MG Fish Oil Fish Oil No 1{capsu QD Fish Oil 1000 MG 1000 MG le} 1000 MG Ferrous Ferrous No 1{table QD Ferrous Sulfate 27 Sulfate 27 t} Sulfate 27 MG MG MG Lisinopril Lisinopril No Lisinopril 20 MG 20 MG 20 MG Immunizations Ordered Immunization Filled Immunization Date Status Commen ts Source Name Name Nasreen COVID-19 Nasreen COVID-19 2021-02-27 Completed Co mmon [facility] Vaccine (Low Dose Vaccine (Low Dose 11:21:[facility] Booster[facility] COVID-19 [facility] COVID-19 2021-02-27 Completed Co mmon [facility] Vaccine (Low Dose Vaccine (Low Dose 11:21:00 [facility] Booster) Booster) [facility] COVID-19 [facility] COVID-19 2021-02-27 Completed Co mmon [facility] Vaccine (Low Dose Vaccine (Low Dose 11:21:00 [facility] Booster) Booster) [facility] COVID19 [facility] COVID-19 2021-02-27 Completed Co mmon [facility] Vaccine (Low Dose Vaccine (Low Dose 11:21:00 [facility] Booster) Booster) [facility] FluAD FluAD 2021-02-18 Completed Common Spirit 11:38:00 [facility] FluAD FluAD 2021-02-18 Completed Common [facility] 11:38:00 [facility] FluAD FluAD 2021-02-18 Completed Common [facility] 11:38:00 [facility] FluAD FluAD 2021-02-18 Completed Common Spirit 11:38:00 [facility] FluAD FluAD 2021-02-18 Completed Common Spirit 11:38:00 [facility] Pfizer COVID-19 Pfizer COVID-19 2020-05-17 Completed Comm on Spirit Vaccine Vaccine 11:42:00 - [facility] Pfizer COVID-19 Pfizer COVID-19 2020-05-17 Completed Comm on Spirit Vaccine Vaccine 11:42:00 [facility] Pfizer COVID-19 Pfizer COVID-19 2020-05-17 Completed Comm on Spirit Vaccine Vaccine 11:42:00 [facility] Pfizer COVID-19 Pfizer COVID-19 2020-05-17 Completed Comm on Spirit Vaccine Vaccine 11:42:00 [facility] Pfizer COVID-19 Pfizer COVID-19 2020-04-26 Completed Comm on Spirit Vaccine Vaccine 11:41:00 [facility] Pfizer COVID-19 Pfizer COVID-19 2020-04-26 Completed Comm on Spirit Vaccine Vaccine 11:41:00 [facility] Pfizer COVID-19 Pfizer COVID-19 2020-04-26 Completed Comm on Spirit Vaccine Vaccine 11:41:00 [facility] Pfizer COVID-19 Pfizer COVID-19 2020-04-26 Completed Comm on [facility] Vaccine Vaccine 11:41:00 [facility] Vital Signs Vital Name Observation Time Observation Value Comments Source height 2021-10-04 10:30:00 67 [in_i] Common [facility] weight 2021-10-04 10:30:00 209.6 [lb_av] Common [facility] temperature 2021-10-04 10:30:00 97.7 [degF] Common [facility] bmi 2021-10-04 10:30:00 32.82 kg/m2 [facility] oximetry 2021-10-04 10:30:00 95 % [facility] respiratory rate 2021-10-04 10:30:00 17 /min Comm on [facility] blood pressure 2021-10-04 10:30:00 138 mm[Hg] Common [facility] - systolic [facility] blood pressure 2021-10-04 10:30:00 74 mm[Hg] Common [facility] - diastolic [facility] height 2021-06-04 15:10:00 67 [in_i] [facility] weight 2021-06-04 15:10:00 207.4 [lb_av] [facility] temperature 2021-06-04 15:10:00 97.5 [degF] Common [facility] bmi 2021-06-04 15:10:00 32.48 kg/m2 [facility] oximetry 2021-06-04 15:10:00 98 % [facility] respiratory rate 2021-06-04 15:10:00 17 /min Comm on [facility] blood pressure 2021-06-04 15:10:00 134 mm[Hg] Common [facility] - systolic [facility] blood pressure 2021-06-04 15:10:00 77 mm[Hg] Common [facility] - diastolic [facility] height 2021-06-04 15:40:00 67 [in_i] Common S pirit - [facility] weight 2021-06-04 15:40:00 207.4 [lb_av] Common Spirit - [facility] temperature 2021-06-04 15:40:00 97.5 [degF] Common S pirit - [facility] bmi 2021-06-04 15:40:00 32.48 kg/m2 Common S pirit - [facility] oximetry 2021-06-04 15:40:00 98 % Common S pirit [facility] respiratory rate 2021-06-04 15:40:00 17 /min Comm on [facility] blood pressure 2021-06-04 15:40:00 134 mm[Hg] Common [facility] - systolic [facility] blood pressure 2021-06-04 15:40:00 77 mm[Hg] Common [facility] - diastolic [facility] temperature 2021-02-18 09:30:00 96.6 [degF] Common S pirit [facility] bmi 2021-02-18 09:30:00 31.96 kg/m2 [facility] S pirit [facility] oximetry 2021-02-18 09:30:00 99 % [facility] S pirit [facility] respiratory rate 2021-02-18 09:30:00 16 /min Comm on [facility] blood pressure 2021-02-18 09:30:00 135 mm[Hg] Common Spirit - systolic [facility] blood pressure 2021-02-18 09:30:00 82 mm[Hg] Common Spirit - diastolic [facility] height 2021-02-18 09:30:00 67 [in_i] Common S pirit - [facility] weight 2021-02-18 09:30:00 204.1 [lb_av] Common [facility] height 2020-10-18 09:20:00 67 [in_i] Common S pirit - [facility] weight 2020-10-18 09:20:00 201.5 [lb_av] Common [facility] temperature 2020-10-18 09:20:00 97.3 [degF] [facility] bmi 2020-10-18 09:20:00 31.56 kg/m2 Common [facility] oximetry 2020-10-18 09:20:00 98 % Common [facility] respiratory rate 2020-10-18 09:20:00 18 /min Comm on [facility] blood pressure 2020-10-18 09:20:00 138 mm[Hg] Common [facility] systolic [facility] blood pressure 2020-10-18 09:20:00 70 mm[Hg] Common [facility] diastolic [facility] Procedures This patient has no known procedures. Encounters Start End Encounter Admission Attending Care Care Encounter Source Date/Time Date/Time Type Type Clinicians Facility Department ID 2021-06-03 Outpatient Moon, STLMLC STLMLC [id number] Common 09:48:01 Caleb [facility] 2021-05-02 Outpatient MDA JEFERSON [id number] 18:14[facility] 2021-05-02 Outpatient MDA JEFERSON [id number] 18:14:22 [facility] 2021-04-24 Outpatient Moon, STLMLC STLMLC [id number] Common 14:19:15 Caleb [id number] [facility] 2021-04-24 Outpatient Moon, STLMLC STLMLC [id number] Common 13:28:51 Caleb [id number] [facility] 2021-04-24 Outpatient Moon, STLMLC STLMLC [id number] Common 12:37:41 Caleb [id number] [facility] 2021-04-24 Outpatient Moon, STLMLC STLMLC [id number] Common 12:36:40 Caleb [id number] [facility] 2021-04-24 Outpatient Moon, STLMLC STLMLC [id number] Common 12:11:43 Caleb [id number] [facility] 2021-04-24 Outpatient Moon, STLMLC STLMLC [id number] Common 11:25:34 Caleb [id number] [facility] 2021-04-24 Outpatient Moon, STLMLC STLMLC [id number] Common 11:17:21 Caleb [id number] [facility] 2021-04-24 Outpatient Moon, STLMLC STLMLC [id number] Common 11:17:13 Caleb [id number] [facility] 2021-04-24 Outpatient Moon, STLMLC STLMLC [id number] Common 11:07:24 Caleb [id number] [facility] - [facility] 2021-11-18 2021-11-18 Outpatient EL LANZA, MDA MDA [id number] 08:00:00 23:59:00 ETHAN walton n 2021-11-18 2021-11-18 Outpatient EL NILAM, MDA MDA [id number] 13:19:23 15:05:50 COURTNEY fields 2021-11-18 2021-11-18 Outpatient EL ALNZA, MDA MDA [id number] 12:19:10 12:19:10 ETHAN walton n 2021-11-18 2021-11-18 Outpatient EL LANZA, MDA MDA [id number] 09:53:03 09:53:03 ETHAN walton n 2021-10-04 2021-10-04 OFFICE STLMLC STLMLC [id number] Co mmon 00:00:00 00:00:00 VISIT Spirit ESTAB PT - CH[facility] LEVEL 4 [facility] 2021-06-17 2021-06-17 Outpatient EL VENERACION, MDA MDA [id number] 12:45:15 13:59:35 BRISA walton n 2021-06-04 2021-06-04 OFFICE STLMLC STLMLC [id number] Co mmon 00:00:00 00:00:00 VISIT Spirit ESTAB PT - [facility] LEVEL 4 [facility] 2021-06-04 2021-06-04 SUB ANNUAL STLMLC STLMLC [id number] Common 00:00:00 00:00:00 MCR Spirit WELLNESS - [facility] VISIT [facility] 2021-02-27 2021-02-27 (COVID STLMLC STLMLC [id number] Co mmon 00:00:00 00:00:00 Inj) COVID Spi rit Injection [facility] 2021-02-18 2021-02-18 OFFICE STLMLC STLMLC [id number] Co mmon 00:00:00 00:00:00 VISIT [facility] ESTAB PT - [facility]I LEVEL 4 [facility] 2020-10-18 2020-10-18 OFFICE STLMLC STLMLC [id number] Co mmon 00:00:00 00:00:00 VISIT [facility] ESTAB PT - [facility] LEVEL 4 [facility] 2020-10-16 2020-10-16 Outpatient EL LANZA, MDA MDA [id number] 06:53:55 23:59:00 ETHAN parkero n 2020-10-16 2020-10-16 Outpatient EL NILAM, MDA MDA [id number] 13:20:54 13:20:59 COURTNEY fields 2020-10-16 2020-10-16 Outpatient EL LANZA, MDA MDA [id number] 08:17:09 08:17:09 ETHAN parkero n 2020-10-16 2020-10-16 Outpatient EL LANZA, MDA MDA [id number] 07:27:33 07:27:33 ETHAN parkero n 2020-09-05 2020-09-05 Outpatient STLMLC STLMLC [id number] Common 00:00:00 00:00:00 [facility] 2020-06-21 2020-06-21 Outpatient STLMLC STLMLC [id number] Common 00:00:00 00:00:00 [facility] 2020-06-06 2020-06-06 Outpatient STLMLC STLMLC [id number] Common 00:00:00 00:00:00 [facility] 2020-06-05 2020-06-05 Outpatient STLMLC STLMLC [id number] Common 00:00:00 00:00:00 [facility] 2020-06-05 2020-06-05 Outpatient STLMLC STLMLC [id number] Common 00:00:00 00:00:00 [facility] 2020-04-09 2020-04-09 Outpatient EL LANZA, MDA MDA [id number] 11:59:17 23:59:00 ETHAN fields 2020-03-08 2020-03-08 Outpatient STLMLC STLMLC [id number] Common 00:00:00 00:00:00 [facility] 2020-03-05 2020-03-05 Outpatient EL LIBRADO, MDA MDA [id number] 10:44:04 13:47:07 BALDOMERO fields 2020-03-02 2020-03-02 Outpatient EL LIBRADO, MDA MDA [id number] 08:54:30 08:54:30 BALDOMERO fields 2020-03-02 2020-03-02 Outpatient EL LIBRADO, MDA MDA [id number] 08:45:31 08:47:00 BALDOMERO fields 2019-12-08 2019-12-08 [facility] [id number] Common 08:00:00 08:00:[address] [facility] 2019-09-20 2019-09-21 Outpatient EL NILAM, MDA MDA [id number] 14:55:45 08:33:19 COURTNEY fields 2019-09-20 2019-09-20 Outpatient EL NILAM, MDA MDA [id number] 07:43:22 23:59:00 COURTNEY fields 2019-09-20 2019-09-20 Outpatient EL NILAM, MDA MDA [id number] 08:02:55 08:02:55 COURTNEY fields 2019-09-08 2019-09-08 [facility] [id number] Common 09:56:00 09:56:[address] [facility] [facility] [address] [facility] 2019-09-08 2019-09-08 Outpatient [facility] [id number] Common 08:00:00 08:00:[address] [facility] 2019-06-28 2019-06-28 Out[facility] [id number] Common 08:16:00 08:16:00 t Derc[facility] it Drive [facility] 2019-05-12 2019-05-12 Outpatient Ajit Braun [id number] Common 15:00:00 15:00:[address] [facility] 2019-02-07 2019-02-07 Outpatient Ajit Braun [id number] Common 13:30:00 13:30:00 t Derc[facility] [address] [facility] Results This patient has no known results.
[2022-01-23 13:17] LABS: Urine Blood 1+ (Negative); Urine Glucose Negative (Negative); Urine Protein Trace (Negative); Urine Specific Gravity 1.025 (1.005-1.030); Urine pH 5.5 (5.0-7.0)
--- NOTE | 2022-01-23 13:23 | RAD REPORT ---
EXAM DESCRIPTION: RAD - Chest Single View - 01/23/2022 1:19 pm CLINICAL HISTORY: DYSPNEA Chest pain. COMPARISON: No comparisons FINDINGS: Portable technique limits examination quality. The lungs are grossly clear. The heart is upper limit of normal in size. No displaced fractures. IMPRESSION: No acute intrathoracic process suspected.
[2022-01-23 13:28] LABS: Urine Bacteria <20 /HPF (<20); Urine Mucus 1+ /HPF (None Seen); Urine WBC Clump Rare /HPF (None Seen)
[2022-01-23 13:30] LABS: Absolute Lymphocytes (CBC) 1.8 K/uL (0.7-4.9); Hematocrit 33.6 % (36.0-45.0); Lymphocytes % 25.5 % (15.3-44.8); MCV 74.5 fL (80-100); MPV 7.4 fL (7.6-11.3); RBC Red Blood Cell Count 4.52 M/uL (3.86-4.86)
[2022-01-23 13:44] LABS: Albumin 2.8 g/dL (3.4-5.0); Bilirubin Total 0.4 mg/dL (0.2-1.0); Potassium 3.9 mmol/L (3.5-5.1); Protein, Total 7.7 g/dL (6.4-8.2)
--- NOTE | 2022-01-23 15:05 | RAD REPORT ---
EXAM DESCRIPTION: CTAbdomen Pelvis W Contrast - 01/23/2022 2:51 pm CLINICAL HISTORY: Abdominal pain. abd pain COMPARISON: Foot Right 3 View dated 12/30/2021No comparisons TECHNIQUE: Biphasic CT imaging of the abdomen and pelvis was performed with 100 ml non-ionic IV cont rast. All CT scans are performed using dose optimization technique as appropriate and may include automated exposure control or mA/KV adjustment according to patient size. FINDINGS: The lung bases are clear. The liver contains 14 mm low-density lesion in the left lobe, likely a small cyst. Spleen, pancreas, adrenal glands are within normal limits. Punctate calculi left kidney without hydronephrosis. Postsur gical changes inferior right kidney without suspicious finding. Small benign cysts are present in bot h kidneys. No bowel obstruction, free air, free fluid or abscess. Nonvisualized appendix. No evidence of signi ficant lymphadenopathy. Complex multi-septated cystic lesion in the right inferior pelvis measuring 9 x 5 cm noted. 3.5 cm ri ght inferior anterior pelvic hypodense soft tissue lesion also present. Moderate lumbar degenerative changes. 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 There is an additional 3.5 cm low-density lesion in the inferior anterior right pelvi s as well, similar in appearance. Recommend follow-up pelvic sonography or MRI of the pelvis with contrast for further evaluation.
--- NOTE | 2022-01-23 15:27 | ER ---
Nurse's Notes [facility] Name: Dulce Bosch Age: 81 yrs Sex: Female : 1940 Arrival Date: 01/23/2022 Time: 11:32 Bed 26 Private MD: Diagnosis: Cystic mass right pelvis;UTI/ Urinary tract infection, site not specified Presentation: 01/23 12:14 Chief complaint: Patient states: Right groin pain X 1 week. SOB since 3 days ago, SpO2 ld1 100% RA. Coronavirus screen: At this time, the client does not indicate any symptoms associated with coronavirus-19. Ebola Screen: No symptoms or risks identified at this time. Initial Sepsis Screen: Does the patient meet any 2 criteria? No. Patient's initial sepsis screen is negative. Does the patient have a suspected source of infection? No. Patient's initial sepsis screen is negative. Risk Assessment: Do you want to hurt yourself or someone else? Patient reports no desire to harm self or others. Onset of symptoms was January 23, 2022 at 12:15. 12:14 Method Of Arrival: Ambulatory ld1 12:14 Acuity: LINETTE 3 ld1 Triage Assessment: 12:14 General: Appears in no apparent distress. comfortable, Behavior is calm, cooperative, ld1 appropriate for age. Pain: Complains of pain in right femoral area Pain does not radiate. Pain currently is 6 out of 10 on a pain scale. Quality of pain is described as throbbing, Pain began suddenly, Is continuous. EENT: No signs and/or symptoms were reported regarding the EENT system. Neuro: Level of Consciousness is awake, alert, obeys commands, Oriented to person, place, time, situation. Cardiovascular: Capillary refill < 3 seconds Patient's skin is warm and dry. Respiratory: Reports shortness of breath at rest on exertion Airway is patent Respiratory effort is even, unlabored, Onset: The symptoms/episode began/occurred yesterday, the patient has mild shortness of breath. GI: Abdomen is round non-distended. : No signs and/or symptoms were reported regarding the genitourinary system. Derm: No signs and/or symptoms reported regarding the dermatologic system. Musculoskeletal: No signs and/or symptoms reported regarding the musculoskeletal system. Historical: - Allergies: 12:14 No Known Allergies; ld1 - PMHx: 12:14 Hyperlipidemia; Hypertension; ld1 - PSHx: 12:14 MARNI mastectomy; Kidney cancer; ld1 - Immunization history:: Adult Immunizations up to date, Client reports receiving the 2nd dose of the Covid vaccine. - Social history:: Smoking status: Patient denies any tobacco usage or history of. Patient/guardian denies using alcohol. Screenin:30 Abuse screen: Denies threats or abuse. Denies injuries from another. Nutritional eh3 screening: No deficits noted. Tuberculosis screening: No symptoms or risk factors identified. Fall Risk None identified. Assessment: 12:30 General: Appears in no apparent distress. uncomfortable, Behavior is calm, cooperative, eh3 appropriate for age. Pain: Complains of pain in pelvis and right leg and right lower quadrant and right femoral area Pain does not radiate. Pain currently is 9 out of 10 on a pain scale. Quality of pain is described as aching, crampy, sharp, Pain began 2-3 days ago. Is continuous, Alleviated by rest, Aggravated by repositioning. Neuro: Level of Consciousness is awake, alert, obeys commands, Oriented to person, place, time, situation. Cardiovascular: Capillary refill < 3 seconds Patient's skin is warm and dry. Rhythm is sinus rhythm. Respiratory: Airway is patent Respiratory effort is even, unlabored, Respiratory pattern is regular, symmetrical, Breath sounds are clear bilaterally. GI: Abdomen is round non-distended, Abd is soft Abdomen is tender to palpation in right lower quadrant Reports loss of appetite for 2 weeks. : No signs and/or symptoms were reported regarding the genitourinary system. EENT: No signs and/or symptoms were reported regarding the EENT system. Derm: No signs and/or symptoms reported regarding the dermatologic system. Musculoskeletal: No signs and/or symptoms reported regarding the musculoskeletal system. 13:30 Reassessment: Patient and/or family updated on plan of care and expected duration. Pain eh3 level reassessed. Patient is alert/active/playful, equal unlabored respirations, skin warm/dry/pink. 14:30 Reassessment: Patient and/or family updated on plan of care and expected duration. Pain eh3 level reassessed. Patient is alert, oriented x 3, equal unlabored respirations, skin warm/dry/pink. Vital Signs: 12:14 BP 125 / 74; Pulse 95; Resp 18; Temp 97.6(TE); Pulse Ox 100% on R/A; Weight 93.89 kg; ld1 Height 5 ft. 6 in. (167.64 cm); Pain 6/10; 12:30 BP 150 / 91; Pulse 87; Resp 20; Temp 98.6(O); Pulse Ox 96% on R/A; Pain 6/10; eh3 13:30 BP 142 / 79; Pulse 84; Resp 22; Pulse Ox 96% on R/A; eh3 14:30 BP 128 / 77; Pulse 76; Resp 15; Pulse Ox 97% on R/A; eh3 12:14 Body Mass Index 33.41 (93.89 kg, 167.64 cm) ld1 ED Course: 11:32 Patient arrived in ED. rg4 12:14 Arm band placed on right wrist. ld1 12:15 Triage completed. ld1 12:20 [facility]C [facility]. kb 12:20 Brad Pineda MD is Attending Physician. kb 12:30 Patient has correct armband on for positive identification. Bed in low position. Call eh3 light in reach. Side rails up X2. Client placed on continuous cardiac and pulse oximetry monitoring. NIBP monitoring applied. Door closed. Noise minimized. Lights dimmed. Warm blanket given. 12:30 Inserted saline lock: 20 gauge in right antecubital area, using aseptic technique. eh3 Blood collected. 12:43 Lu Springer, RN is Primary Nurse. eh3 13:21 Chest Single View XRAY In Process Unspecified. EDMS 14:53 CT Abd/Pelvis - IV Contrast Only In Process Unspecified. EDMS 15:38 No provider procedures requiring assistance completed. IV discontinued, intact, eh3 bleeding controlled, No redness/swelling at site. Administered Medications: No medications were administered Medication: 15:39 VIS not applicable for this client. eh3 Outcome: 15:26 Discharge ordered by . kb 15:39 Discharged to home ambulatory. eh3 15:39 Condition: stable 15:39 Discharge instructions given to patient, Instructed on discharge instructions, follow up and referral plans. Demonstrated understanding of instructions, follow-up care. 15:39 Patient left the ED. eh3 Signatures: Dispatcher [employer] EDMS Nancy Ferreira FNP-C FNP-CkNeha Yates rg4 Tasha Mckinney, RN RN ld1 Lu Springer, RN RN eh3
--- NOTE | 2022-01-23 15:27 | EDPHYS ---
Physician Documentation [facility] Name: Dulce Bosch Age: 81 yrs Sex: Female : 1940 Arrival Date: 01/23/2022 Time: 11:32 Bed 26 Private MD: ILANA Physician Brad Pineda HPI: 01/23 12:49 This 81 yrs old Black Female presents to ER via Ambulatory with complaints of Flank kb Pain, Shortness Of Breath. 12:49 The patient presents with abdominal pain right lower quadrant. Onset: The kb symptoms/episode began/occurred 2 week(s) ago. The symptoms do not radiate. Associated signs and symptoms: none. The symptoms are described as constant. Modifying factors: The symptoms are alleviated by nothing, the symptoms are aggravated by nothing. Severity of pain: At its worst the pain was mild moderate in the emergency department the pain is unchanged. The patient has not experienced similar symptoms in the past. The patient has not recently seen a physician. Pt reports RLQ pain that started 2 weeks ago. Denies n/v/d, fever, urinary symptoms. Also reports shortness of breath on exertion for the last few days, but states "I've just been overdoing it and that is why I was short of breath. I'm not short of breath right now.". Historical: - Allergies: 12:14 No Known Allergies; ld1 - PMHx: 12:14 Hyperlipidemia; Hypertension; ld1 - PSHx: 12:14 MARNI mastectomy; Kidney cancer; ld1 - Immunization history:: Adult Immunizations up to date, Client reports receiving the 2nd dose of the Covid vaccine. - Social history:: Smoking status: Patient denies any tobacco usage or history of. Patient/guardian denies using alcohol. ROS: 12:48 Constitutional: Negative for fever, chills, and weight loss. kb 12:48 Respiratory: Positive for dyspnea on exertion. 12:48 Abdomen/GI: Positive for abdominal pain, Negative for nausea, vomiting, and diarrhea. 12:48 All other systems are negative. Exam: 12:48 Constitutional: This is a well developed, well nourished patient who is awake, alert, kb and in no acute distress. Head/Face: Normocephalic, atraumatic. ENT: Moist Mucous membranes Cardiovascular: Regular rate and rhythm with a normal S1 and S2. No gallops, murmurs, or rubs. No pulse deficits. Respiratory: Respirations even and unlabored. No increased work of breathing. Talking in full sentences Skin: Warm, dry with normal turgor. Normal color. MS/ Extremity: Pulses equal, no cyanosis. Neurovascular intact. Full, normal range of motion. Neuro: Awake and alert, GCS 15, oriented to person, place, time, and situation. Moves all extremities. Normal gait. Psych: Awake, alert, with orientation to person, place and time. Behavior, mood, and affect are within normal limits. 12:48 Abdomen/GI: Inspection: abdomen appears normal, Bowel sounds: normal, Palpation: soft, in all quadrants, mild abdominal tenderness, in the right lower quadrant. Vital Signs: 12:14 BP 125 / 74; Pulse 95; Resp 18; Temp 97.6(TE); Pulse Ox 100% on R/A; Weight 93.89 kg; ld1 Height 5 ft. 6 in. (167.64 cm); Pain 6/10; 12:30 BP 150 / 91; Pulse 87; Resp 20; Temp 98.6(O); Pulse Ox 96% on R/A; Pain 6/10; eh3 13:30 BP 142 / 79; Pulse 84; Resp 22; Pulse Ox 96% on R/A; eh3 14:30 BP 128 / 77; Pulse 76; Resp 15; Pulse Ox 97% on R/A; eh3 12:14 Body Mass Index 33.41 (93.89 kg, 167.64 cm) ld1 MDM: 12:20 Patient medically screened. kb 12:48 Data reviewed: vital signs, nurses notes. Data interpreted: Pulse oximetry: on room air kb is 100 %. Interpretation: normal. 15:24 Counseling: I had a detailed discussion with the patient and/or guardian regarding: the kb historical points, exam findings, and any diagnostic results supporting the discharge/admit diagnosis, lab results, radiology results, the need for outpatient follow up, a family practitioner, to return to the emergency department if symptoms worsen or persist or if there are any questions or concerns that arise at home. ED course: Results given to pt and explained to her that she needs outpatient US and/or MRI. Verbal understanding received. . 01/23 12:31 Order name: CBC with Diff; Complete Time: 13:39 kb 01/23 12:31 Order name: CMP; Complete Time: 13:46 kb 01/23 12:31 Order name: Lipase; Complete Time: 13:46 kb 01/23 12:31 Order name: Urine Microscopic Only; Complete Time: 13:30 kb 01/23 13:17 Order name: Urine Dipstick-Ancillary; Complete Time: 13:21 EDMS 01/23 13:32 Order name: Urine Culture EDMS 01/23 12:31 Order name: IV Saline Lock; Complete Time: 13:03 kb 01/23 12:31 Order name: Labs collected and sent; Complete Time: 13:03 kb 01/23 12:31 Order name: Urine Dipstick-Ancillary (obtain specimen); Complete Time: 13:19 kb 01/23 12:31 Order name: Chest Single View XRAY; Complete Time: 13:25 kb 01/23 14:31 Order name: CT Abd/Pelvis - IV Contrast Only; Complete Time: 15:09 kb Administered Medications: No medications were administered Disposition Summary: 01/23/22 15:26 Discharge Ordered Location: Home kb Condition: Stable kb Diagnosis - Cystic mass right pelvis kb - UTI/ Urinary tract infection, site not specified kb Followup: kb - With: Emergency Department - When: As needed - Reason: Worsening of condition Followup: kb - With: Private Physician - When: 2 - 3 days - Reason: Recheck today's complaints, Continuance of care, Re-evaluation by your physician Discharge Instructions: - Discharge Summary Sheet kb - Pelvic Mass, Female kb - Urinary Tract Infection, Adult, [id number] kb Forms: - Medication Reconciliation Form kb - Thank You Letter kb - Antibiotic Education kb - Prescription Opioid Use kb Prescriptions: - Augmentin 875-125 mg Oral Tablet - take 1 tablet by ORAL route every 12 hours for 10 days; 20 tablet; Refills: 0, kb Product Selection Permitted Signatures: Dispatcher [employer] EDNancy Oscar FNP-C FNP-Ckb Dibbern, Lauren, RN RN ld1
[2022-01-23 16:19] VITALS: TEMP 98.6
[2022-01-23 16:21] VITALS: BP 128/77; O2SAT 97
== END 2022-01-23 15:39 | disposition home or self-care (01) ==
LOC: ER 11:27
DX: N39.0 Urinary tract infection, site not specified (principal); N94.89 Other specified conditions associated with female genital organs and menstrual cycle; I10 Essential (primary) hypertension; Z85.528 Personal history of other malignant neoplasm of kidney; Z90.13 Acquired absence of bilateral breasts and nipples
CPT/HCPCS: 87088; 85025; 87086; 36415; 83690; 80053; 74177; 71045; 99284; Q9967; 81003; 81015